=== PATIENT | female | born 1980 | race Caucasian/White ===

== ENCOUNTER 2020-03-28 12:45 | Inpatient (IN) | payer SELFPAY ==
[~2020-03-28] VITALS: Ht 152.4 cm; Wt 55.8 kg
[2020-03-28] VITALS (7 sets, daily range): BP systolic 124–131; BP diastolic 60–78
[~2020-03-28 12:45] MED LIST: BELLADONNA1 TA1 PO; DONNATAL1 TAB PO; HYDROCODONE BIT1 T11 PO; NKHM; TRAMADOL HCL50 MG PO; VICODIN 5/500 505 MG PO; Zofran4 MG PO
[2020-03-28 13:27] LABS: CLARITY CLOUDY (CLEAR); COLOR YELLOW (YELLOW)
[2020-03-28 13:28] LABS: BILIRUBIN 1+ (NEGATIVE); BLOOD NEGATIVE (NEGATIVE); GLUCOSE NEGATIVE (NEGATIVE); KETONE 3+ (NEGATIVE); LEUKO ESTERASE NEGATIVE (NEGATIVE); NITRITE NEGATIVE (NEGATIVE)
[2020-03-28 13:30] LABS: BACTERIA 2+; MUCOUS 2+
[2020-03-28 13:36] LABS: HEMATOCRIT 42.6 % (37.0-47.0); MEAN CELL VOLUME 88.6 fl (81.0-99.0); MEAN CORPUSCULAR HGB 29.3 pg (27.0-31.0); MEAN CORPUSCULAR HGB CONC 33.1 g/dl (33.0-37.0); MEAN PLATELET VOLUME 9.5 fl (9.6-12.3); PLATELET COUNT AUTOMATED 466 10*3/uL (130-400); RED BLOOD COUNT 4.81 10*6/uL (4.10-5.10); RED CELL DISTRI WIDTH 13.1 % (0-14.5); WHITE BLOOD COUNT 19.6 10*3/uL (4.8-10.8)
[2020-03-28 13:50] LABS: ALBUMIN 4.3 gm/dl (3.1-4.5); ALKALINE PHOSPHATASE 95 U/L (45-117); BUN 14 mg/dl (7-24); CHLORIDE 101 mmol/L (98-107); CREATININE 0.92 mg/dL (0.55-1.02); LIPASE 102 U/L (73-393); SGOT/AST 10 IU/L (3-35); SGPT/ALT 18 U/L (12-78); SODIUM 137 mmol/L (136-145); TOTAL PROTEIN 8.4 gm/dL (6.4-8.2)
[2020-03-28 13:53] LABS: POTASSIUM 2.4 mmol/L (3.5-5.1)
[2020-03-28 13:59] LABS: PLATELET SUFFICIENCY HIGH (NORMAL); TOTAL CELLS COUNTED 100 #CELLS
--- NOTE | 2020-03-28 14:35 | NUR ---
IV FLUIDS REMAIN INFUSING, K-RUN ALSO INFUSING PER ORDER. PT RESTING QUIETLY, REPORTS NAUSEA, BUT NO ACTIVE VOMITING NOTED.
--- NOTE | 2020-03-28 15:58 | NUR ---
PT PULLED OUT IV DUE TO K -RUN. PT CALL LIGHT WAS AT THE BEDISDE. IV WAS RE STARTED IN THER RA, IV K-RUN INFUSING.
--- NOTE | 2020-03-28 18:37 | NUR ---
PT RESTING WITH EYES CLOSED, AWAKENS WITH CRE. REPORTS UNSURE IF THE JAIRO HELPED OR NOT. NO ACTIVE VOMITING NOTED.
--- NOTE | 2020-03-28 20:29 | NUR ---
PT MEDICATED WITH PRN ZOFRAN FOR C/O NAUSEA AND VOMITTING. WILL MONITOR FOR EFFECTIVENESS.
--- NOTE | 2020-03-28 21:20 | NUR ---
PT REPORTS NO RELIEF OF NAUSEA. PRN ZOFRAN INEFFECTIVE
[2020-03-29] VITALS: BP 129/82
--- NOTE | 2020-03-29 | NUR ---
PT MEDICATED WITH PRN PHENERGAN FOR C/O N/V. WILL MONITOR FOR EFFECTIVENESS.
--- NOTE | 2020-03-29 00:50 | NUR ---
PT ASLEEP IN BED AT THIS TIME. NO S/S OF DISTRESS NOTED. PRN PHENERGAN EFFECTIVE.
--- NOTE | 2020-03-29 02:13 | NUR ---
PT MEDICATED WITH PRN MORPHINE FOR C/O PAIN RATED A 10/10. WILL MONITOR FOR EFFECTIVENESS.
--- NOTE | 2020-03-29 03:00 | NUR ---
PT ASLEEP IN BED AT THIS TIME. PRN MORPHINE APPEARS EFFECTIVE.
--- NOTE | 2020-03-29 05:50 | NUR ---
PT MEDICATED WITH PRN MORPHINE FOR C/O BACK PAIN RATED A 10/10. WILL MONITOR FOR EFFECTIVENESS.
[2020-03-29 06:36] LABS: ALBUMIN 3.4 gm/dl (3.1-4.5); ALKALINE PHOSPHATASE 71 U/L (45-117); BUN 10 mg/dl (7-24); CHLORIDE 111 mmol/L (98-107); CHOLESTEROL 170 mg/dL (<200); CREATININE 0.65 mg/dL (0.55-1.02); HDL CHOLESTEROL 52 mg/dl (40-60); LDL CHOLESTEROL 106 mg/dL (9-159); POTASSIUM 2.6 mmol/L (3.5-5.1); SGOT/AST 11 IU/L (3-35); SGPT/ALT 15 U/L (12-78); SODIUM 141 mmol/L (136-145); TOTAL PROTEIN 6.8 gm/dL (6.4-8.2); TRIGLYCERIDES 61 mg/dl (<150); VLDL CHOLESTEROL 12 mg/dL (6-40)
[2020-03-29 06:38] LABS: BASO % 0.1 % (0.0-1.0); HEMATOCRIT 36.4 % (37.0-47.0); LYMPH # 1.9 10*3/uL (1.3-4.4); LYMPH % 8.9 % (27.0-41.0); MEAN CORPUSCULAR HGB 30.4 pg (27.0-31.0); MEAN CORPUSCULAR HGB CONC 32.7 g/dl (33.0-37.0); MEAN PLATELET VOLUME 10.1 fl (9.6-12.3); MONO # 1.1 10*3/uL (0.1-1.0); MONO % 5.2 % (3.0-9.0); NEUT # 18.6 10*3/uL (2.3-7.9); NEUT % 85.1 % (47.0-73.0); PLATELET COUNT AUTOMATED 364 10*3/uL (130-400); RED BLOOD COUNT 3.91 10*6/uL (4.10-5.10); RED CELL DISTRI WIDTH 13.7 % (0-14.5); WHITE BLOOD COUNT 21.8 10*3/uL (4.8-10.8)
[2020-03-29 06:40] LABS: THYROID STIM HORMONE (HS) 0.239 uIU/ml (0.358-4.75)
[2020-03-29 06:43] LABS: MEAN CELL VOLUME 93.1 fl (81.0-99.0)
[2020-03-29 07:26] LABS: VITAMIN D, 25-HYDROXY 21.7 ng/mL (30-100)
[2020-03-29 08:00] VITALS: BP 133/65
--- NOTE | 2020-03-29 08:10 | NUR ---
PT RESTING IN BED. RESPS EASY AND NON LABORED. NO S/S OF DISTRESS NOTED.VSS. WHTIE BOARD UPDATED.POC DISCUSSED W PT. A/O X3. STATES SHE IS HAVING EPIGASTIC/ABD PAIN THAT IS UNRELIEVED WITH MORPHINE-WILL CALL DOC. NORMOACTIVE BS NOTED. NO EPISODES OF EMESIS THIS MORNING. WILL CONTINUE TO MONITOR. IVF INFUSING W/O INCIDENT. CALL LIGHT WITHIN REACH.
--- NOTE | 2020-03-29 08:15 | NUR ---
SPOKE W DR VELEZ REGARDING PTS PAIN MANAGEMENT. STATES TO ORDER A KIDNEY US AND GIVE 1MG IV DILAUDID NOW.
--- NOTE | 2020-03-29 08:28 | NUR ---
PT GIVEN DILAUDID BY STUDENT NURSE FOR C/O 04/22 ACHING ABD/BACK PAIN. WILL CONTINUE TO MONITOR FOR RELIEF. RESPS EASY AND NON LABORED. SITTING IN BED WATCHING TV. CALL LIGHT WITHIN REACH.
--- NOTE | 2020-03-29 09:00 | NUR ---
Digital Media Specialist in to talk to patient. Patient states lives at home with alone. There are no steps in the home. Physician: none at present Pharmacy: none Home health services: none Patient's level of ADLs: INDEPENDENT Patient has working utilities: all working DME: none Follow-up physician's appointment after d/c: will be made by hospitalist nurse director with doctor of her choice Does patient want to access PORTAL?: no Discharge plan discussed with patient, she lives at home alone, she is independent in adls and ambulation, drives, is currently laid off, she stated she will return home when discharged and denies any home needs, case management will follow for any needs. PATRICIA PERKINS
--- NOTE | 2020-03-29 09:00 | NUR ---
MEDICATION APPEARS EFFECTIVE. PT SLEEPING. RESPS EASY AND NON LABORED. NO S/S OF DISTRESS NOTED. CALL LIGHT WITHIN REACH.
[2020-03-29 12:00] VITALS: BP 120/68
--- NOTE | 2020-03-29 13:16 | NUR ---
Patient signed out AMA. Patient encouraged to stay and advised of possible consequences of premature discharge. Physician and plastic sheets finishing supervisor INOCENTE notified. Patient instructed what to do regarding care post-departure from the hospital; emergency phone numbers provided. Hep Lock discontinued. Site asymptomatic. Pressure applied. Sterile dressing applied. TORY WILL DESTINY
== END 2020-03-29 13:16 | disposition left against medical advice (07) | DRG 392 ==
LOC: ED 12:45 → EDHOLD 18:01 → 4E 19:02
PROVIDERS: Internal Medicine; Physician Assistant; ADMIT Emergency Medicine
DX: R11.2 Nausea with vomiting, unspecified (principal); R19.7 Diarrhea, unspecified; E87.6 Hypokalemia; E87.8 Other disorders of electrolyte and fluid balance, not elsewhere classified; E55.9 Vitamin D deficiency, unspecified; D64.9 Anemia, unspecified; R00.1 Bradycardia, unspecified; D72.829 Elevated white blood cell count, unspecified; D47.3 Essential (hemorrhagic) thrombocythemia; R80.9 Proteinuria, unspecified; R82.4 Acetonuria; R82.71 Bacteriuria; Z53.29 Procedure and treatment not carried out because of patient's decision for other reasons; Z90.49 Acquired absence of other specified parts of digestive tract; Z98.51 Tubal ligation status

== ENCOUNTER 2020-04-01 10:58 | Observation (INO) | payer SELFPAY ==
[~2020-04-01] VITALS: Ht 152.4 cm; Wt 57.8 kg
[2020-04-01 11:05] VITALS: BP 106/46
--- NOTE | 2020-04-01 11:31 | NUR ---
GIVEN EXTRA WARM BLANKETS.
[2020-04-01 11:53] LABS: BASO % 0.2 % (0.0-1.0); EOS % 0.2 % (1.0-4.0); HEMATOCRIT 41.5 % (37.0-47.0); LYMPH # 1.3 10*3/uL (1.3-4.4); LYMPH % 11.9 % (27.0-41.0); MEAN CELL VOLUME 90.2 fl (81.0-99.0); MEAN CORPUSCULAR HGB 29.8 pg (27.0-31.0); MEAN PLATELET VOLUME 9.5 fl (9.6-12.3); MONO # 0.4 10*3/uL (0.1-1.0); MONO % 3.5 % (3.0-9.0); NEUT # 9.5 10*3/uL (2.3-7.9); NEUT % 83.8 % (47.0-73.0); PLATELET COUNT AUTOMATED 355 10*3/uL (130-400); RED CELL DISTRI WIDTH 13.2 % (0-14.5); WHITE BLOOD COUNT 11.3 10*3/uL (4.8-10.8)
[2020-04-01 12:06] LABS: ALBUMIN 3.5 gm/dl (3.1-4.5); ALKALINE PHOSPHATASE 74 U/L (45-117); BUN 13 mg/dl (7-24); CHLORIDE 105 mmol/L (98-107); CREATININE 0.76 mg/dL (0.55-1.02); LIPASE 212 U/L (73-393); POTASSIUM 2.9 mmol/L (3.5-5.1); SGOT/AST 19 IU/L (3-35); SGPT/ALT 46 U/L (12-78); SODIUM 138 mmol/L (136-145); TOTAL PROTEIN 7.1 gm/dL (6.4-8.2)
[2020-04-01 12:07] LABS: BETA-HCG, QUANT < 1.0 mIU/mL (1-3)
--- NOTE | 2020-04-01 12:10 | NUR ---
GIVEN ANOTHER WARM BLANKET.
[2020-04-01 13:23] LABS: BILIRUBIN NEGATIVE (NEGATIVE); BLOOD NEGATIVE (NEGATIVE); CLARITY CLOUDY (CLEAR); COLOR YELLOW (YELLOW); GLUCOSE NEGATIVE (NEGATIVE); KETONE 3+ (NEGATIVE); LEUKO ESTERASE NEGATIVE (NEGATIVE); NITRITE NEGATIVE (NEGATIVE); PH 6.5 (5.0-9.0); SPECIFIC GRAVITY 1.015 (1.005-1.030)
[2020-04-01 13:26] LABS: BACTERIA 2+; CALCIUM OXALATE CRYSTALS 1+; EPITHELIAL CELLS 21-30; MUCOUS 3+
--- NOTE | 2020-04-01 13:54 | NUR ---
UP TO THE BATHROOM. NAUSEA IS A LITTLE BETTER.
[2020-04-01 14:00] VITALS: BP 126/76
--- NOTE | 2020-04-01 14:00 | NUR ---
Time: 1399 A 39 year old FEMALE admitted to under services of MICHELLE JOSEPH DO, Pt. arrived via stretcher from ER. Chief complaint: ABD PAIN,N/V. ROUPE,JENNIFER GAY
--- NOTE | 2020-04-01 15:18 | NUR ---
MEDICATED WITH PRN NORCO AND ZOFRAN PER ORDERS AND REQUEST.
[2020-04-01 16:00] VITALS: BP 126/76
--- NOTE | 2020-04-01 16:15 | NUR ---
LAURACO GIVEN EARLIER DID NOT HELP. DR. CRUZ NOTIFIED.
--- NOTE | 2020-04-01 16:39 | NUR ---
MEDICATED WITH PRN MORPHINE PER ORDER AND REQUEST.
--- NOTE | 2020-04-01 17:00 | NUR ---
MORPHINE HELPED VERY LITTLE.
[2020-04-01 20:00] VITALS: BP 113/62
--- NOTE | 2020-04-01 21:00 | NUR ---
PATIENT RESTING ON RT SIDE, EYES CLOSED, RESPIRATIONS EASY AND REGULAR ON ROOM AIR. LUNGS CLEAR T/O. C/O ABDOMINAL PAIN DENIES NEED FOR MEDICATION AT THIS TIME. STATES X2 WATERY STOOLS TODAY. IVF PER ORDERS. CALL LIGHT IN REACH.
[2020-04-02] VITALS: BP 122/72
--- NOTE | 2020-04-02 00:43 | NUR ---
MORPHINE AND ZOFRAN GIVEN PER PT REQUEST FOR ABDOMINAL PAIN RATED 6/10 AND C/O NAUSEA. WILL MONITOR.
--- NOTE | 2020-04-02 01:30 | NUR ---
PATIENT STATES MORPHINE EFFECTIVE FOR PAIN
--- NOTE | 2020-04-02 05:21 | NUR ---
MORPHINE GIVEN PER PT REQUEST FOR MID ABDOMEN PAIN RATED 6/10
--- NOTE | 2020-04-02 06:00 | NUR ---
PATIENT ABLE TO REST, MORPHINE APPEARS EFFECTIVE
[2020-04-02 06:36] LABS: ALBUMIN 3.2 gm/dl (3.1-4.5); BUN 4 mg/dl (7-24); CHLORIDE 113 mmol/L (98-107); CREATININE 0.56 mg/dL (0.55-1.02); POTASSIUM 3.5 mmol/L (3.5-5.1); SGOT/AST 13 IU/L (3-35); SGPT/ALT 35 U/L (12-78); SODIUM 141 mmol/L (136-145); TOTAL PROTEIN 6.2 gm/dL (6.4-8.2)
[2020-04-02 06:37] LABS: ALKALINE PHOSPHATASE 62 U/L (45-117)
[2020-04-02 06:40] LABS: BASO % 0.3 % (0.0-1.0); EOS # 0.2 10*3/uL (0.0-0.4); EOS % 2.4 % (1.0-4.0); HEMATOCRIT 37.9 % (37.0-47.0); LYMPH # 2.7 10*3/uL (1.3-4.4); LYMPH % 30.1 % (27.0-41.0); MEAN CELL VOLUME 91.5 fl (81.0-99.0); MEAN CORPUSCULAR HGB 30.2 pg (27.0-31.0); MONO # 0.5 10*3/uL (0.1-1.0); MONO % 5.7 % (3.0-9.0); NEUT # 5.4 10*3/uL (2.3-7.9); NEUT % 61.3 % (47.0-73.0); PLATELET COUNT AUTOMATED 315 10*3/uL (130-400); RED BLOOD COUNT 4.14 10*6/uL (4.10-5.10); RED CELL DISTRI WIDTH 13.4 % (0-14.5); WHITE BLOOD COUNT 8.9 10*3/uL (4.8-10.8)
[2020-04-02 07:14] LABS: ACT PARTIAL THROMBO TIME 25.4 SECONDS (20.0-32.1); INTERNATIONAL NORM RATIO 1.1 (2.0-3.5)
--- NOTE | 2020-04-02 07:30 | NUR ---
IN TO SEE PATIENT. PATIENT RESTING IN BED. CO SOME ABDOMINAL PAIN. STATES SHE LAST VOMITING EARLIER TODAY AND HASN'T SINCE. PATIENT REMINDED WE NEED A STOOL CULTURE. PATIENT STATES SHE IS AWARE AND HAS NO HAD A BM YET TODAY. ASSESSMENT COMPLETE. RESPS EASY AND REGULAR. CALL LIGHT IN REACH.
--- NOTE | 2020-04-02 07:56 | NUR ---
ASSESSMENT COMPLETE WITHOUT INCIDENCE. PT STATES SHE IS HAVING MID ABDOMINAL PAIN RATED A 5/10 THAT DOES NOT RADIATE ANYWHERE. SHE DENIES NVD SINCE YESTERDAY. PT IS AWARE SHE IS STILL NPO. RESPIRATIONS ARE RELAXED AND REGULAR. CALL LIGHT WITHIN REACH, WILL CONTINUE TO MONITOR
[2020-04-02 08:00] VITALS: BP 100/76
--- NOTE | 2020-04-02 09:00 | NUR ---
Reinforcing Steel Placer in to talk to patient. Patient states lives at home with alone. There are no steps in the home. Physician: none at present Pharmacy: none Home health services: none Patient's level of ADLs: INDEPENDENT Patient has working utilities: all working DME: none Follow-up physician's appointment after d/c: will be made by hospitalist nurse director upon discharge Does patient want to access PORTAL?: no Discharge plan discussed with patient, she lives at home, is independent in adls and ambulation, is currently laid off from her job, she states she will return home when discharaged and denies any home needs, case management will follow. PATRICIA PERKINS
--- NOTE | 2020-04-02 09:25 | NUR ---
SPOKE TO SERVANDO ON THE PHONE SHE STATES PATIENT CAN ADVANCE TO CLEAR LIQUID DIET, WILL ADD ORDER
--- NOTE | 2020-04-02 10:04 | NUR ---
PRN MORPHINE IV GIVEN FOR COMPLAINTS OF ABDOMNIAL PAIN. PRN ZOFRAN IV GIVEN FOR COMPLAINTS OF VOMITING AFTER SHE ATE JELLO AND CHICKEN BROTH. WILL MONITOR FOR EFFECTIVENESS
--- NOTE | 2020-04-02 11:00 | NUR ---
PT STATES MORPHINE AND ZOFRAN EFFECTIVE
[2020-04-02 12:00] VITALS: BP 113/76
--- NOTE | 2020-04-02 13:03 | NUR ---
PRN MORPHINE IV GIVEN FOR ABDOMINAL PAIN RATED 5/10. WILL MONITOR FOR EFFECTIVENESS
--- NOTE | 2020-04-02 14:00 | NUR ---
MORPHINE EFFECTIVE PER PT
[2020-04-02 16:00] VITALS: BP 120/76
--- NOTE | 2020-04-02 17:00 | NUR ---
PRN MORPHINE GIVEN FOR ABDOMINAL PAIN RATED 6/10. PRN ZOFRAN IV GIVEN FOR NAUSEA. WILL MONITOR FOR EFFECTIVENESS
[2020-04-02 20:00] VITALS: BP 102/68
--- NOTE | 2020-04-02 20:58 | NUR ---
MEDICATED WITH PRN MORPHINE PER ORDER FOR CO ABDOMINAL PAIN. WILL MONITOR EFFECTIVENESS. CALL LIGHT IN REACH.
--- NOTE | 2020-04-02 21:58 | NUR ---
PATIENT SLEEPING. RESPS EASY AND REGULAR. MORPHINE APPEARS TO BE EFFECTIVE.
--- NOTE | 2020-04-02 22:02 | NUR ---
24 HR chart check completed.
[2020-04-03] VITALS: BP 104/68
--- NOTE | 2020-04-03 00:06 | NUR ---
MEDICATED WITH PRN ZOFRAN FOR CO NAUSEA PER ORDER. MEDICATED WITH PRN MORPHINE FOR CO ABDOMINAL PAIN PER ORDER. WILL ASSESS EFFECTIVENESS. CALL LIGHT IN REACH.
--- NOTE | 2020-04-03 01:06 | NUR ---
PATIENT SLEEPING. MORPHINE AND ZOFRAN APPEARS TO BE EFFECTIVE. CALL LIGHT IN REACH.
--- NOTE | 2020-04-03 04:22 | NUR ---
PATIENT MEDICATED WITH PRN MORPHINE FOR CO ABDOMINAL PAIN RATED A 6/10. WILL ASSESS EFFECTIVENESS.
--- NOTE | 2020-04-03 05:22 | NUR ---
PER PATIENT MORPHINE ONLY SOMEWHAT EFFECTIVE.
[2020-04-03 08:00] VITALS: BP 115/65
--- NOTE | 2020-04-03 08:07 | NUR ---
MEDICATED WITH PRN MORPHINE PER ORDER AND REQUEST FOR L SIDE ABD PAIN. REQUESTING ZOFRAN. 0812 MEDICATED WITH PRN ZOFRAN PER ORDER AND REQUEST.
--- NOTE | 2020-04-03 08:35 | NUR ---
MORPHINE AND ZOFRAN HELP SOME.
--- NOTE | 2020-04-03 11:18 | NUR ---
MEDICATED WITHSTRAIGHT ZOFRAN AND PRN MORPHINE PER ORDERS AND REQUEST.
--- NOTE | 2020-04-03 11:40 | NUR ---
MORPHINE AND ZOFRAN HELP.
[2020-04-03 12:00] VITALS: BP 142/75
--- NOTE | 2020-04-03 14:36 | NUR ---
MEDICATED WITH PRN MORPHINE PER ORDER AND REQUEST.
--- NOTE | 2020-04-03 15:05 | NUR ---
MEDICATED WITH PRN TYLENOL FOR C/O HEADACHE.
--- NOTE | 2020-04-03 15:45 | NUR ---
TYLENOL HELPED SOME.
[2020-04-03 16:00] VITALS: BP 110/88
--- NOTE | 2020-04-03 17:40 | NUR ---
MEDICATED WITH PRN MORPHINE PER ORDER AND REQUEST FOR ABD PAIN.
--- NOTE | 2020-04-03 19:15 | NUR ---
PATIENT RESTING IN BED. STILL CO ABDOMINAL PAIN. DENIES ANY OTHER COMPLAINTS AT THIS TIME. ASSESSMENT COMPLETE. RESPS EASY AND REGULAR. CALL LIGHT IN REACH.
--- NOTE | 2020-04-03 19:48 | NUR ---
24 HR chart check completed.
[2020-04-03 20:00] VITALS: BP 107/65
--- NOTE | 2020-04-03 20:50 | NUR ---
MEDICATED WITH PRN MORPHINE PER PATIENT REQUEST AND PER ORDER FOR CO ABDOMINAL PAIN RATED A 6/10. WILL ASSESS EFFECTIVENESS.
--- NOTE | 2020-04-03 21:50 | NUR ---
MORPHINE HELPED SOME PER PATIENT.
[2020-04-04] VITALS: BP 119/81
--- NOTE | 2020-04-04 00:02 | NUR ---
MEDICATED WITH PRN RESTORIL PER PATIENT REQUEST AND PER ORDER FOR CO TROUBLE SLEEPING. WILL ASSESS EFFECTIVENESS.
--- NOTE | 2020-04-04 01:02 | NUR ---
PATIENT SLEEPING, RESPS ERND. RESTORIL EFFECTIVE.
--- NOTE | 2020-04-04 05:14 | NUR ---
MEDICATED WITH PRN MORPHINE PER PATIENT REQUEST AND PER ORDER FR CO ABDOMINAL PAIN RATED A 5/10. WILL ASSESS EFFECTIVENESS.
--- NOTE | 2020-04-04 06:14 | NUR ---
MORPHINE EFFECTIVE PER PATIENT.
[2020-04-04 08:00] VITALS: BP 105/59
[2020-04-04] MEDS ORDERED: CIPRO500 MG PO (11:55)
[2020-04-04] MEDS ORDERED: FLAGYL500 MG PO (11:55)
[2020-04-04] MEDS ORDERED: ZOFRAN4 MG PO (11:56)
--- NOTE | 2020-04-04 12:02 | NUR ---
PATIENT DISCHARGED TO HOME.
[2020-04-04] MEDS ORDERED: VANCOCIN125 M1 PO (14:19)
== END 2020-04-04 12:02 | disposition home or self-care (01) ==
LOC: ED 10:58 → 4E 13:07 → EDHOLD 13:07 → 4E 13:39
PROVIDERS: Emergency Medicine; Internal Medicine; ADMIT Internal Medicine; ATTEND Internal Medicine
DX: R11.2 Nausea with vomiting, unspecified (principal); E86.0 Dehydration; R10.9 Unspecified abdominal pain; F32.9 Major depressive disorder, single episode, unspecified; E87.6 Hypokalemia; D72.829 Elevated white blood cell count, unspecified; R73.9 Hyperglycemia, unspecified; R82.4 Acetonuria

== ENCOUNTER 2021-01-03 08:05 | Inpatient (IN) | payer OTHER ==
[~2021-01-03] VITALS: Ht 152.4 cm; Wt 60.5 kg
[~2021-01-03 08:05] MED LIST changes: +CIPRO500 MG PO; +FLAGYL500 MG PO; +VANCOCIN125 M1 PO; +ZOFRAN4 MG PO
[2021-01-03 08:10] VITALS: BP 150/101
[2021-01-03 09:16] LABS: BASO % 0.2 % (0.0-1.0); EOS # 0.1 10*3/uL (0.0-0.4); EOS % 0.4 % (1.0-4.0); HEMATOCRIT 39.4 % (37.0-47.0); LYMPH # 1.3 10*3/uL (1.3-4.4); LYMPH % 10.2 % (27.0-41.0); MEAN CELL VOLUME 89.5 fl (81.0-99.0); MEAN CORPUSCULAR HGB 28.6 pg (27.0-31.0); MEAN PLATELET VOLUME 9.4 fl (9.6-12.3); MONO # 0.4 10*3/uL (0.1-1.0); MONO % 3.4 % (3.0-9.0); NEUT # 10.8 10*3/uL (2.3-7.9); NEUT % 85.3 % (47.0-73.0); PLATELET COUNT AUTOMATED 311 10*3/uL (130-400); RED CELL DISTRI WIDTH 14.1 % (0-14.5); WHITE BLOOD COUNT 12.6 10*3/uL (4.8-10.8)
[2021-01-03 09:39] LABS: ALBUMIN 3.4 gm/dl (3.1-4.5); ALKALINE PHOSPHATASE 82 U/L (45-117); BUN 10 mg/dl (7-24); CHLORIDE 109 mmol/L (98-107); CREATININE 0.73 mg/dL (0.55-1.02); POTASSIUM 3.5 mmol/L (3.5-5.1); SGOT/AST 8 IU/L (3-35); SGPT/ALT 16 U/L (12-78); SODIUM 140 mmol/L (136-145); TOTAL PROTEIN 6.9 gm/dL (6.4-8.2)
[2021-01-03 10:47] VITALS: BP 139/83
[2021-01-03 12:08] LABS: BILIRUBIN Negative (Negative); BLOOD Negative (Negative); CLARITY Clear (Clear); COLOR Yellow (Yellow); GLUCOSE Negative (Negative); KETONE 3+ (Negative); LEUKO ESTERASE Negative (Negative); NITRITE Negative (Negative); PH 7.5 (4.5-8.0); SPECIFIC GRAVITY >= 1.030 (1.001-1.030); UROBILINOGEN 0.2 E.U./dl (0.0-1.0)
[2021-01-03 12:16] LABS: EPITHELIAL CELLS 0-2; RBC 0-2 rbc/hpf (0-2); WBC 0-2 wbc/hpf (0-5)
[2021-01-03 18:26] VITALS: BP 144/83
[2021-01-03 20:00] VITALS: BP 145/74
[2021-01-04] VITALS: BP 135/90
[2021-01-04 06:34] LABS: BASO % 0.3 % (0.0-1.0); EOS % 0.1 % (1.0-4.0); HEMATOCRIT 38.2 % (37.0-47.0); LYMPH # 2.5 10*3/uL (1.3-4.4); MEAN CELL VOLUME 89.3 fl (81.0-99.0); MEAN CORPUSCULAR HGB 28.7 pg (27.0-31.0); MEAN CORPUSCULAR HGB CONC 32.2 g/dl (33.0-37.0); MEAN PLATELET VOLUME 9.5 fl (9.6-12.3); MONO # 0.6 10*3/uL (0.1-1.0); MONO % 3.8 % (3.0-9.0); NEUT # 11.7 10*3/uL (2.3-7.9); NEUT % 78.4 % (47.0-73.0); PLATELET COUNT AUTOMATED 320 10*3/uL (130-400); RED BLOOD COUNT 4.28 10*6/uL (4.10-5.10); RED CELL DISTRI WIDTH 14.3 % (0-14.5); WHITE BLOOD COUNT 14.9 10*3/uL (4.8-10.8)
[2021-01-04 06:54] LABS: ALBUMIN 3.4 gm/dl (3.1-4.5); BUN 7 mg/dl (7-24); CHLORIDE 107 mmol/L (98-107); CHOLESTEROL 202 mg/dL (<200); CREATININE 0.57 mg/dL (0.55-1.02); POTASSIUM 3.2 mmol/L (3.5-5.1); SGOT/AST 8 IU/L (3-35); SGPT/ALT 15 U/L (12-78); SODIUM 138 mmol/L (136-145); TRIGLYCERIDES 76 mg/dl (<150)
[2021-01-04 07:00] LABS: ALKALINE PHOSPHATASE 81 U/L (45-117); FREE T4 1.27 ng/dl (0.76-1.46); LDL CHOLESTEROL 128 mg/dL (9-159); THYROID STIM HORMONE (HS) 0.229 uIU/ml (0.358-4.75); TOTAL PROTEIN 6.8 gm/dL (6.4-8.2)
[2021-01-04 07:52] LABS: VITAMIN D, 25-HYDROXY 17.2 ng/mL (30-100)
[2021-01-04 08:00] VITALS: BP 131/68
[2021-01-04 12:00] VITALS: BP 125/72
[2021-01-04 16:00] VITALS: BP 121/70
[2021-01-04 20:00] VITALS: BP 131/78
[2021-01-05] VITALS: BP 122/55
[2021-01-05 06:30] LABS: BASO % 0.1 % (0.0-1.0); EOS # 0.1 10*3/uL (0.0-0.4); EOS % 0.3 % (1.0-4.0); LYMPH # 1.8 10*3/uL (1.3-4.4); LYMPH % 10.4 % (27.0-41.0); MEAN CELL VOLUME 87.6 fl (81.0-99.0); MEAN CORPUSCULAR HGB 28.8 pg (27.0-31.0); MEAN CORPUSCULAR HGB CONC 32.8 g/dl (33.0-37.0); MEAN PLATELET VOLUME 9.9 fl (9.6-12.3); MONO # 0.6 10*3/uL (0.1-1.0); MONO % 3.7 % (3.0-9.0); NEUT # 14.6 10*3/uL (2.3-7.9); NEUT % 84.8 % (47.0-73.0); PLATELET COUNT AUTOMATED 380 10*3/uL (130-400); RED BLOOD COUNT 4.45 10*6/uL (4.10-5.10); RED CELL DISTRI WIDTH 14.4 % (0-14.5); WHITE BLOOD COUNT 17.3 10*3/uL (4.8-10.8)
[2021-01-05 06:45] LABS: ALBUMIN 3.6 gm/dl (3.1-4.5); ALKALINE PHOSPHATASE 77 U/L (45-117); BUN 8 mg/dl (7-24); CHLORIDE 105 mmol/L (98-107); POTASSIUM 2.8 mmol/L (3.5-5.1); SGOT/AST 7 IU/L (3-35); SGPT/ALT 14 U/L (12-78); SODIUM 141 mmol/L (136-145)
[2021-01-05 08:00] VITALS: BP 131/54
[2021-01-05 13:54] LABS: LIPASE 289 U/L (73-393)
[2021-01-05 16:11] VITALS: BP 140/67
[2021-01-05 20:07] VITALS: BP 136/56
[2021-01-06] VITALS: BP 117/58
[2021-01-06 06:12] LABS: BASO % 0.2 % (0.0-1.0); EOS % 0.1 % (1.0-4.0); HEMATOCRIT 36.4 % (37.0-47.0); LYMPH # 2.8 10*3/uL (1.3-4.4); LYMPH % 15.2 % (27.0-41.0); MEAN CELL VOLUME 87.9 fl (81.0-99.0); MEAN CORPUSCULAR HGB 28.3 pg (27.0-31.0); MEAN CORPUSCULAR HGB CONC 32.1 g/dl (33.0-37.0); MONO # 1.2 10*3/uL (0.1-1.0); MONO % 6.4 % (3.0-9.0); NEUT # 14.2 10*3/uL (2.3-7.9); NEUT % 77.6 % (47.0-73.0); PLATELET COUNT AUTOMATED 332 10*3/uL (130-400); RED BLOOD COUNT 4.14 10*6/uL (4.10-5.10); RED CELL DISTRI WIDTH 14.6 % (0-14.5); WHITE BLOOD COUNT 18.2 10*3/uL (4.8-10.8)
[2021-01-06 06:31] LABS: ALBUMIN 3.3 gm/dl (3.1-4.5); BUN 10 mg/dl (7-24); CHLORIDE 107 mmol/L (98-107); CREATININE 0.54 mg/dL (0.55-1.02); POTASSIUM 2.6 mmol/L (3.5-5.1); SGOT/AST 5 IU/L (3-35); SGPT/ALT 13 U/L (12-78); SODIUM 141 mmol/L (136-145); TOTAL PROTEIN 6.4 gm/dL (6.4-8.2)
[2021-01-06 06:32] LABS: ALKALINE PHOSPHATASE 67 U/L (45-117)
[2021-01-06 08:00] VITALS: BP 129/69
== END 2021-01-06 11:46 | disposition left against medical advice (07) | DRG 720 ==
LOC: ED 08:05 → 4E 13:09 → EDHOLD 13:09 → 5E 13:09 → EDHOLD 13:59 → 5E 16:49 → 4E 01-05 09:44
PROVIDERS: Internal Medicine; Nurse Practitioner; Registered Nurse; ADMIT Family Medicine; ATTEND Family Medicine
PROC: 05HB33Z Insertion of Infusion Device into Right Basilic Vein, Percutaneous Approach (ICD-10-PCS; principal; 2021-01-05)
DX: A41.9 Sepsis, unspecified organism (principal); Z53.29 Procedure and treatment not carried out because of patient's decision for other reasons; Z90.49 Acquired absence of other specified parts of digestive tract; Z98.51 Tubal ligation status; Z20.822 Contact with and (suspected) exposure to COVID-19; K52.9 Noninfective gastroenteritis and colitis, unspecified

== ENCOUNTER 2021-02-17 09:10 | Emergency (ER) | payer OTHER ==
[~2021-02-17] VITALS: Ht 152.4 cm; Wt 59.0 kg
[2021-02-17 10:07] LABS: BASO % 0.3 % (0.0-1.0); EOS # 0.1 10*3/uL (0.0-0.4); EOS % 0.4 % (1.0-4.0); HEMATOCRIT 41.3 % (37.0-47.0); LYMPH # 1.5 10*3/uL (1.3-4.4); LYMPH % 12.6 % (27.0-41.0); MEAN CELL VOLUME 89.8 fl (81.0-99.0); MEAN CORPUSCULAR HGB 28.3 pg (27.0-31.0); MEAN CORPUSCULAR HGB CONC 31.5 g/dl (33.0-37.0); MEAN PLATELET VOLUME 9.7 fl (9.6-12.3); MONO # 0.4 10*3/uL (0.1-1.0); MONO % 3.2 % (3.0-9.0); NEUT # 9.8 10*3/uL (2.3-7.9); NEUT % 83.2 % (47.0-73.0); PLATELET COUNT AUTOMATED 328 10*3/uL (130-400); RED CELL DISTRI WIDTH 14.1 % (0-14.5); WHITE BLOOD COUNT 11.7 10*3/uL (4.8-10.8)
[2021-02-17 10:25] LABS: ALBUMIN 3.5 gm/dl (3.1-4.5); BUN 7 mg/dl (7-24); CHLORIDE 110 mmol/L (98-107); CREATININE 0.75 mg/dL (0.55-1.02); LIPASE 143 U/L (73-393); POTASSIUM 3.2 mmol/L (3.5-5.1); SGOT/AST 13 IU/L (3-35); SGPT/ALT 18 U/L (12-78); SODIUM 138 mmol/L (136-145)
[2021-02-17 10:27] LABS: ALKALINE PHOSPHATASE 86 U/L (45-117); TOTAL PROTEIN 7.2 gm/dL (6.4-8.2)
[2021-02-17 10:28] LABS: BETA-HCG, QUANT < 1.0 mIU/mL (1-3)
[2021-02-17 11:22] LABS: BILIRUBIN Negative (Negative); BLOOD Negative (Negative); CLARITY Clear (Clear); COLOR Yellow (Yellow); GLUCOSE Negative (Negative); KETONE 1+ (Negative); LEUKO ESTERASE Negative (Negative); NITRITE Negative (Negative); SPECIFIC GRAVITY 1.015 (1.001-1.030); UROBILINOGEN 0.2 E.U./dl (0.0-1.0)
[2021-02-17 11:36] LABS: PH >= 9.0 (4.5-8.0)
[2021-02-17 11:38] LABS: EPITHELIAL CELLS 16-20; MUCOUS TRACE
[2021-02-17 20:14] VITALS: BP 130/74
== END 2021-02-17 20:15 | disposition short-term general hospital (02) ==
LOC: ED 09:10
PROVIDERS: Emergency Medicine
DX: I82.890 Acute embolism and thrombosis of other specified veins (principal); R11.10 Vomiting, unspecified; R10.84 Generalized abdominal pain; Z98.51 Tubal ligation status; Z90.49 Acquired absence of other specified parts of digestive tract

== ENCOUNTER 2022-10-03 16:11 | Emergency (ER) | payer OTHER ==
[~2022-10-03] VITALS: Ht 149.9 cm; Wt 54.9 kg
[2022-10-03 16:18] VITALS: BP 155/92
[2022-10-03 16:58] LABS: HEMATOCRIT 39.9 % (37.0-47.0); MEAN CELL VOLUME 93.4 fl (81.0-99.0); MEAN CORPUSCULAR HGB 30.4 pg (27.0-31.0); MEAN CORPUSCULAR HGB CONC 32.6 g/dl (33.0-37.0); MEAN PLATELET VOLUME 9.6 fl (9.6-12.3); PLATELET COUNT AUTOMATED 342 10*3/uL (130-400); RED BLOOD COUNT 4.27 10*6/uL (4.10-5.10); RED CELL DISTRI WIDTH 13.4 % (0-14.5); WHITE BLOOD COUNT 16.1 10*3/uL (4.8-10.8)
[2022-10-03 17:00] LABS: MANUAL DIFF REFLEX YES
[2022-10-03 17:13] LABS: ALKALINE PHOSPHATASE 69 U/L (46-116); BUN 9 mg/dl (9-23); CHLORIDE 105 mmol/L (98-107); LIPASE 32 U/L (12-53); POTASSIUM 3.4 mmol/L (3.4-5.1); SGPT/ALT 16 U/L (10-49)
[2022-10-03 17:19] LABS: BASOPHILS 1 % (0-1); TOTAL CELLS COUNTED 100 #CELLS
[2022-10-03 17:20] LABS: PLATELET SUFFICIENCY NORMAL (NORMAL); TOXIC GRANULATION SLIGHT
[2022-10-03 17:22] LABS: OVALOCYTES FEW
[2022-10-03 23:27] LABS: BILIRUBIN Negative (Negative); BLOOD 1+ (Negative); CLARITY Clear (Clear); COLOR Yellow (Yellow); GLUCOSE Trace (Negative); KETONE 2+ (Negative); LEUKO ESTERASE Negative (Negative); NITRITE Negative (Negative); SPECIFIC GRAVITY >= 1.030 (1.001-1.030); UROBILINOGEN 0.2 E.U./dl (0.0-1.0)
[2022-10-03 23:36] LABS: BACTERIA TRACE; WBC 0-2 wbc/hpf (0-5)
== END 2022-10-03 23:43 | disposition home or self-care (01) ==
LOC: ED 16:11
PROVIDERS: Physician Assistant
DX: R10.32 Left lower quadrant pain (principal); Z90.49 Acquired absence of other specified parts of digestive tract; Z98.51 Tubal ligation status; Z87.891 Personal history of nicotine dependence